=== PATIENT | male | born 1985 | race Caucasian/White ===

== ENCOUNTER 2020-02-25 07:21 | Outpatient (CLI) | payer BC, OTHER ==
[2020-02-25 16:20] LABS: Prothrombin Time 12.8 sec (12.0-14.7)
[2020-02-25 16:39] LABS: Hemoglobin 15.2 g/dL (14.0-18.0); Mean Corpuscular HGB CONC 34.1 g/dL (32.0-36.0); Mean Corpuscular Hemoglobin 30.7 pg (27.0-31.0); Mean Platelet Volume 8.8 fL (7.4-10.4); Platelet Count 244 thou/uL (130-400); RBC Distribution Width 11.4 % (11.5-14.5); Red Blood Cell (RBC) Count 4.96 mill/uL (4.70-6.10); White Blood Cell (WBC) Count 7.6 thou/uL (4.8-10.8)
[2020-02-25 17:20] LABS: Anion Gap 12 mmol/L (10-20); BUN (Urea Nitrogen) 15 mg/dL (8.9-20.6); Calc. Creatinine Clearance 0 mL/min (70-130); Calcium 9.8 mg/dL (7.8-10.44); Carbon Dioxide 28 mmol/L (22-29); Chloride 103 mmol/L (98-107); Estimated GFR-MDRD 85; Glucose 122 mg/dL (70-105); Potassium 3.7 mmol/L (3.5-5.1); Sodium 139 mmol/L (136-145)
[2020-02-25 17:35] LABS: Bacteria/HPF None Seen HPF (None Seen); Bilirubin Negative (Negative); Blood, Urine Negative (Negative); Clarity Clear (Clear); Glucose, Urine (Dipstick) Normal (Negative); Leukocyte Negative Leu/uL (Negative); Nitrite Negative (Negative); Protein, Urine (Dipstick) Negative (Neg-Trace); RBC/HPF 0-3 HPF (0-3); Squamous Epithelial None Seen HPF (0-3); Urobilinogen Normal mg/dL (Less than 2); WBC/HPF 0-3 HPF (0-3)
[2020-02-26 13:11] LABS: SARS-CoV-2 MS2 Positive; SARS-CoV-2 N Gene Negative; SARS-CoV-2 S Gene Negative; SARS-CoV-2 orf1ab Negative
== END 2020-02-25 07:22 | disposition home or self-care (01) ==
LOC: LABBT 07:21
PROVIDERS: ATTEND Urology
DX: Z01.812 Encounter for preprocedural laboratory examination (principal); Z11.59 Encounter for screening for other viral diseases; N20.0 Calculus of kidney; Q63.1 Lobulated, fused and horseshoe kidney
CPT/HCPCS: 80048; 81001; 85027; 85610; 85730; 87086; 87635; U0003

== ENCOUNTER 2020-02-28 08:53 | Day surgery (SDC) | payer BC ==
[2020-02-22 10:21] VITALS: BMI 23.6
[2020-02-28] MEDS ORDERED: Levofloxacin 500 mg/D5W 100 ml Premix Bag ONE (10:04)
[2020-02-28] MEDS ORDERED: Iopamidol 0 ML FS ONE (12:17)
[2020-02-28] MEDS ORDERED: B & O ONE (12:17)
[2020-02-28] MEDS ORDERED: Midazolam HCl 2 mg/2 ml Vial ONE (12:31)
[2020-02-28] MEDS ORDERED: Fentanyl 100 MCG/2 ML VIAL ONE ×2 (12:31→14:26)
[2020-02-28] MEDS ORDERED: Phenazopyridine HCl 97.5 MG TABLET ONE (14:38)
[2020-02-28] MEDS ORDERED: Oxybutynin 5 MG TAB ONE (14:38)
[2020-02-28] MEDS ORDERED: Lidocaine 1% PF 5 ML VIAL ONE (15:36)
[2020-02-28] MEDS ORDERED: Ondansetron PF 4 MG/2 ML Vial ONE (15:36)
[2020-02-28] MEDS ORDERED: PHENYLEPHRINE-NS 100 MCG/ML 10 ML SYRINGE ONE (15:36)
[2020-02-28] MEDS ORDERED: Dexamethasone 20 MG/5 ML VIAL ONE (15:36)
[2020-02-28] MEDS ORDERED: PROPOFOL 200 MG/20 ML VIAL ONE (15:36)
--- NOTE | 2020-02-28 18:53 | OP ---
DATE OF PROCEDURE: 02/28/2020 SERVICE: Urology. PREOPERATIVE DIAGNOSIS: Bilateral nephrolithiasis. POSTOPERATIVE DIAGNOSIS: Bilateral nephrolithiasis. PROCEDURES PERFORMED: Bilateral ureteroscopy, laser lithotripsy, basket extraction of stones, and placement of 6 x 26 double-J stents bilaterally. 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 He had a CT done, which demonstrated bilateral small nephrolithiasis with the larger stone being on the right. We discussed options for removal of the stones prophylactically versus passing them on his own. He did not want to take a chance to try to pass them on his own, so he elected to proceed with bilateral ureteroscopy. Risks and benefits were discussed and he has agreed to proceed forward. DESCRIPTION OF PROCEDURE: After identification of armband and verification of consent, the patient was brought back to the operating room, where he underwent general anesthesia with an LMA. He was then placed in dorsal lithotomy position and prepped and draped in usual sterile fashion. After appropriate time-out, a lubricated 22-Kyrgyz rigid cystoscope was introduced per urethra into the bladder. The bladder was unremarkable without any concerning findings. Both ureters were in the orthotopic location. The left ureter was cannulated with a 0.035 Sensor wire up to the level of renal pelvis. The cystoscope was then removed and a dual-lumen catheter was advanced over the Sensor wire up to the level of the mid ureter. An Amplatz Super Stiff wire was then placed through the second lumen of the dual-lumen up to the level of renal pelvis and the dual-lumen removed. 07/25 x 46 cm ureteral access sheath was advanced over the Super Stiff wire up to the level of the mid ureter. The inner cannula and the Super Stiff wire were then removed leaving the outer sheath and Sensor wire in place as a safety wire. A flexible digital ureteroscope was then passed up into the renal pelvis and a full pyeloscopy was performed. There were only a few small scattered calcifications, that were approximately in the 1 to 3 mm range. The stones were grasped with 1.9-Kyr[place]z Mohsen basket and brought out for stone analysis. Upon final pyeloscopy on this side, there were no additional stones identified. Pull-back ureteroscopy was employed and there were no stones seen in the ureter. There was no significant dilation or mucosal splitting on this side. Because of the bilateral ureteroscopy, I did elect to place a stent on this side. A cystoscope was backloaded over the Sensor wire back into the bladder and a 6 x 26 double-J stent with no string was advanced over the Sensor wire up to the level of the renal pelvis. The wire was removed leaving a good curl in the kidney and a good curl in the bladder. The bladder was then emptied and attention was then turned to the right ureteral orifice. The cystoscope was used to cannulate a 0.035 Sensor wire up to the level of the renal pelvis. The same procedure was then performed on the left side by using a dual-lumen tube guide and a Super Stiff wire, and then subsequently a Bard ureteral access sheath as there was more difficulty trying to advance the same 11 x 46 cm ureteral access sheath on the side. The Bard sheath was able to be passed easily up to the level of the proximal ureter. The flexible ureteroscope was then passed into the kidney and a stone was found in the lower pelvis which was able to be basketed, one in the upper renal calyx which was able to be basketed, and a larger stone which could not be basketed due to the size. A 200 micron laser fiber was then used to break the stone in half and then each individual piece removed with the basket. One small fragment was also additionally removed. Final pyeloscopy did not demonstrate any additional calculi. Satisfied that all the stones had been removed and there is nothing left, pull-back ureteroscopy was employed and there was mucosal splitting on this side from a dilation from the sheath. Therefore, we will place a stent as well, but it will need to stay in for 2 weeks. The cystoscope was then backloaded over the Sensor wire back into the bladder and a 6 x 26 double-J stent advanced over the Sensor wire up to the level of the renal pelvis. The wire was removed leaving a partial curl in the kidney and a good curl in the bladder. The bladder was then emptied and the cystoscope removed. The patient had B and O suppository placed. He was then awakened, taken out of positioning, and taken to PACU for recovery in stable condition. COMPLICATIONS: None. ESTIMATED BLOOD LOSS: Minimal. RETAINED TUBES AND DRAINS: Bilateral 6 x 26 double-J stent. SPECIMENS: Stone for stone analysis. DISPOSITION: The patient will be discharged home and follow up with me in approximately 2 weeks for cysto and stent removal. Job ID: [id number]
== END 2020-02-28 16:40 | disposition home or self-care (01) ==
LOC: SDC 08:53
PROVIDERS: ATTEND Urology
PROC: 0TC48ZZ Extirpation of Matter from Left Kidney Pelvis, Via Natural or Artificial Opening Endoscopic (ICD-10-PCS; principal; 2020-02-28)
PROC: 0T788DZ Dilation of Bilateral Ureters with Intraluminal Device, Via Natural or Artificial Opening Endoscopic (ICD-10-PCS; principal; 2020-02-28)
PROC: 0TC38ZZ Extirpation of Matter from Right Kidney Pelvis, Via Natural or Artificial Opening Endoscopic (ICD-10-PCS; principal; 2020-02-28)
DX: N20.0 Calculus of kidney (principal); Q63.1 Lobulated, fused and horseshoe kidney
CPT/HCPCS: 76000; 82365; 88300; J1100; J1956; J2001; J2250; J2405; J2704; J3010; Q9967